=== PATIENT | female | born 1940 | race Caucasian/White ===

== ENCOUNTER 2019-12-05 21:45 | Inpatient (IN) | payer OTHER ==
[~2019-12-05] VITALS: Ht 154.9 cm; Wt 51.7 kg
[2019-12-05 20:40] VITALS: BP 172/80
[2019-12-05] MEDS ORDERED: HYDROCODONE/APAP 5-325MG TABLET PO PRN (22:00)
[2019-12-05] MEDS ORDERED: ACETAMINOPHEN 325 MG TABLET PO PRN (22:00)
[2019-12-05] MEDS ORDERED: MAGNESIUM HYDROXIDE 30 ML LIQUID UDC PO PRN (22:00)
[2019-12-05] MEDS ORDERED: ONDANSETRON 4 MG/2 ML VIAL IV PRN (22:00)
[2019-12-05] MEDS ORDERED: bp med (22:57)
[2019-12-06] VITALS: BP 120/66
[2019-12-06] MEDS: ZOLPIDEM 5 MG TABLET PO PRN ×2 (00:10→23:19)
[2019-12-06 04:10] VITALS: BP 162/56
[2019-12-06 05:58] LABS: BASOPHILS # (AUTO) 0.1 K/uL (0.0-8.0); BASOPHILS % (AUTO) 0.9 % (0.0-2.0); EOSINOPHILS # (AUTO) 0.2 K/uL (0.0-0.7); HEMATOCRIT 41.1 % (31.2-41.9); HEMOGLOBIN 14.1 g/dL (10.9-14.3); LYMPHOCYTES # (AUTO) 1.2 K/uL (20.0-40.0); LYMPHOCYTES % (AUTO) 15.9 % (20.5-51.5); MEAN CORPUSCULAR HEMOGLOBIN 31.9 uug (24.7-32.8); MEAN CORPUSCULAR HGB CONC 34 g/dL (32.3-35.6); MEAN CORPUSCULAR VOLUME 93.1 fL (75.5-95.3); MONOCYTES # (AUTO) 0.8 K/uL (2.0-10.0); MONOCYTES % (AUTO) 10.5 % (0.0-11.0); NEUTROPHILS # (AUTO) 5.4 K/uL (1.8-8.9); NEUTROPHILS % (AUTO) 70.7 % (38.5-71.5); PLATELET COUNT (AUTO) 213 K/uL (179-408); RED BLOOD CELL COUNT(AUTO) 4.41 MIL/uL (3.63-4.92); WHITE BLOOD COUNT (AUTO) 7.6 K/uL (3.8-11.8)
[2019-12-06 06:19] LABS: BILIRUBIN,TOTAL 1.4 mg/dL (0.2-1.0); CREATININE 0.8 mg/dL (0.6-1.3); MAGNESIUM 1.8 mg/dL (1.8-2.4); PHOSPHOROUS 3.8 mg/dL (2.5-4.9); POTASSIUM 3.8 mmol/L (3.5-5.1); THYROID STIMULATING HORMONE 1.017 mIU/mL (0.358-3.740); TOTAL PROTEIN, SERUM 6.1 g/dL (6.4-8.2)
[2019-12-06] MEDS: PANTOPRAZOLE SODIUM 40 MG TABLET.DR PO SCH (06:41)
--- NOTE | 2019-12-06 08:10 | NUR ---
Received patient sitting up in bed alert, awake and alert. No signs of respiratory distress noted at this time. Patient is saturating well on room air. IV intact and patent right AC 20 gauge. Safety precautions in place bed in lowest position and locked with call lights and belongings within reach. Will continue to monitor.
[2019-12-06 11:00] VITALS: BP 170/77
--- NOTE | 2019-12-06 12:45 | NUR ---
blood pressure elevated 168/70. pt. stable asymptomatic. PERSONNEL OFFICER shireen fan aware. will call previous hospital to fax home medications/ h&p, imaging, notes, consults, labs, covid results.
--- NOTE | 2019-12-06 13:22 | NUR ---
spoke to mill supervisor at [facility]. she stated she will fax h&p, labs, imaging, notes, consults provided her with our fax # and pt.'s authorization to disclose paperwork.
[2019-12-06 16:00] VITALS: BP 143/75
[2019-12-06] MEDS ORDERED: MEMA10TA PO (17:19)
[2019-12-06] MEDS ORDERED: LOPE2CAP PO (17:19)
[2019-12-06] MEDS ORDERED: HYDR25TA4 PO (17:19)
[2019-12-06] MEDS ORDERED: METO-358 PO (17:19)
[2019-12-06] MEDS ORDERED: RISP1TAB27 PO (17:19)
[2019-12-06] MEDS ORDERED: DONE5TAB34 PO (17:19)
[2019-12-06] MEDS ORDERED: TRAZ-257 PO (17:19)
[2019-12-06] MEDS ORDERED: ESCI5TAB PO (17:19)
[2019-12-06] MEDS ORDERED: IBUP-1953 PO (17:19)
[2019-12-06] MEDS ORDERED: CHOL10002 PO (17:19)
[2019-12-06] MEDS ORDERED: MAGN400O6 PO (17:19)
--- NOTE | 2019-12-06 18:50 | NUR ---
Patient resting comfortably in bed. No sign of respiratory distress noted at this time, patient saturating well on room air. Safety precautions in place bed in lowest position and locked with call light and belongings within reach. Will endorse to oncoming nurse.
[2019-12-06] MEDS: DOCUSATE SODIUM 100 MG CAPSULE PO SCH (20:36)
[2019-12-06] MEDS: TRAZODONE 100 MG TABLET PO SCH (20:36)
[2019-12-06] MEDS: IBUPROFEN 400 MG TABLET PO PRN (20:44)
[2019-12-06 20:49] VITALS: BP 171/75
[2019-12-06] MEDS ORDERED: MAGNESIUM HYDROXIDE 30 ML LIQUID UDC PO PRN (21:00)
[2019-12-06 21:30] VITALS: BP 152/69
[2019-12-07 01:30] VITALS: BP 149/83
[2019-12-07 05:14] VITALS: BP 104/59
[2019-12-07] MEDS: PANTOPRAZOLE SODIUM 40 MG TABLET.DR PO SCH (06:00)
[2019-12-07 08:06] LABS: CREATININE 0.9 mg/dL (0.6-1.3); POTASSIUM 3.6 mmol/L (3.5-5.1)
[2019-12-07 08:11] LABS: BASOPHILS # (AUTO) 0.1 K/uL (0.0-8.0); BASOPHILS % (AUTO) 0.8 % (0.0-2.0); EOSINOPHILS # (AUTO) 0.2 K/uL (0.0-0.7); EOSINOPHILS % (AUTO) 2.2 % (0.0-7.0); HEMOGLOBIN 14.6 g/dL (10.9-14.3); LYMPHOCYTES # (AUTO) 1.3 K/uL (20.0-40.0); LYMPHOCYTES % (AUTO) 18.5 % (20.5-51.5); MEAN CORPUSCULAR HEMOGLOBIN 32.4 uug (24.7-32.8); MEAN CORPUSCULAR HGB CONC 35 g/dL (32.3-35.6); MONOCYTES # (AUTO) 0.8 K/uL (2.0-10.0); MONOCYTES % (AUTO) 11.5 % (0.0-11.0); NEUTROPHILS # (AUTO) 4.5 K/uL (1.8-8.9); PLATELET COUNT (AUTO) 216 K/uL (179-408); RED BLOOD CELL COUNT(AUTO) 4.52 MIL/uL (3.63-4.92); WHITE BLOOD COUNT (AUTO) 6.8 K/uL (3.8-11.8)
[2019-12-07 08:12] LABS: BILIRUBIN,DIRECT 0.2 mg/dL (0.0-0.2); BILIRUBIN,TOTAL 1.7 mg/dL (0.2-1.0); MAGNESIUM 1.9 mg/dL (1.8-2.4); TOTAL PROTEIN, SERUM 6.3 g/dL (6.4-8.2)
--- NOTE | 2019-12-07 08:15 | NUR ---
RECEIVED PATIENT IN BED AWAKE ALERT AND ORIENTED BUT FORGETFUL DENIES PAIN OR DISCOMFORTS AT THIS TIME ON ROOM AIR WITH NO SOB CALL LIGHTS AND PERSONAL BELONGINGS ARE WITHIN EASY REACH MADE COMFORTABLE WILL CONTINUE TO OBSERVE
[2019-12-07 08:16] LABS: THYROID STIMULATING HORMONE 1.257 mIU/mL (0.358-3.740)
[2019-12-07] MEDS: MEMANTINE HCL 10 MG TABLET PO SCH ×2 (08:28→17:13)
[2019-12-07] MEDS: HYDROCHLOROTHIAZIDE 25 MG TABLET PO SCH (08:28)
[2019-12-07] MEDS: CHOLECALCIFEROL 1,000 UNIT TABLET PO SCH (08:32)
[2019-12-07] MEDS: DONEPEZIL 5 MG TABLET PO SCH (08:33)
[2019-12-07] MEDS: risperiDONE 1 MG TABLET PO SCH ×2 (08:33→17:13)
[2019-12-07] MEDS: METOPROLOL SUCCINATE XL 50 MG TAB.SR.24H PO SCH (08:34)
[2019-12-07] MEDS ORDERED: LOPERAMIDE HCL 2 MG CAPSULE PO PRN (09:00)
--- NOTE | 2019-12-07 11:26 | NUR ---
NEW ORDER NOTED TO DISCONTINUE TELEMETRY NOTED AND CARRIED OUT
[2019-12-07 11:41] VITALS: BP 100/55
[2019-12-07] MEDS: IBUPROFEN 400 MG TABLET PO PRN (14:03)
[2019-12-07 15:58] VITALS: BP 134/69
--- NOTE | 2019-12-07 18:00 | NUR ---
RESTING ASSISTED NEEDED ON ROOM AIR WITH NO SOB NOT IN DISTRESS AT THIS TIME WILL CONTINUE TO OBSERVE
[2019-12-07 20:00] VITALS: BP 163/78
--- NOTE | 2019-12-07 20:00 | NUR ---
Received patient awake. Patient shows no signs or symptoms of distress at this time. Bed set to lowest position. Call light within reach. Side rails x2 are up. Will continue to monitor patient.
[2019-12-07] MEDS: TRAZODONE 100 MG TABLET PO SCH (20:57)
[2019-12-07] MEDS: DOCUSATE SODIUM 100 MG CAPSULE PO SCH (20:57)
--- NOTE | 2019-12-07 21:04 | NUR ---
Blood pressure rechecked and is 159/94 on left arm. Rechecked on right arm and is 165/76. Pt reports feeling upset at this time. Pt does not appear to be in any distress at this time. Will recheck blood pressure in 1 hour.
[2019-12-07] MEDS: ZOLPIDEM 5 MG TABLET PO PRN (23:03)
[2019-12-08 04:00] VITALS: BP 137/63
[2019-12-08] MEDS: PANTOPRAZOLE SODIUM 40 MG TABLET.DR PO SCH (06:06)
[2019-12-08 06:29] LABS: BASOPHILS # (AUTO) 0.1 K/uL (0.0-8.0); BASOPHILS % (AUTO) 1.2 % (0.0-2.0); EOSINOPHILS # (AUTO) 0.2 K/uL (0.0-0.7); HEMATOCRIT 40.6 % (31.2-41.9); LYMPHOCYTES # (AUTO) 1.5 K/uL (20.0-40.0); LYMPHOCYTES % (AUTO) 24.7 % (20.5-51.5); MEAN CORPUSCULAR HEMOGLOBIN 32.2 uug (24.7-32.8); MEAN CORPUSCULAR HGB CONC 35 g/dL (32.3-35.6); MONOCYTES # (AUTO) 0.7 K/uL (2.0-10.0); MONOCYTES % (AUTO) 12.2 % (0.0-11.0); NEUTROPHILS # (AUTO) 3.5 K/uL (1.8-8.9); NEUTROPHILS % (AUTO) 57.9 % (38.5-71.5); PLATELET COUNT (AUTO) 204 K/uL (179-408); RED BLOOD CELL COUNT(AUTO) 4.37 MIL/uL (3.63-4.92)
[2019-12-08 06:41] LABS: CREATININE 0.8 mg/dL (0.6-1.3); MAGNESIUM 1.7 mg/dL (1.8-2.4); PHOSPHOROUS 3.9 mg/dL (2.5-4.9); POTASSIUM 3.7 mmol/L (3.5-5.1)
--- NOTE | 2019-12-08 07:30 | NUR ---
Patient shows no signs or symptoms of distress at this time. Vital signs stable. Patient endorsed to day shift nurse in stable condition.
[2019-12-08] MEDS: CHOLECALCIFEROL 1,000 UNIT TABLET PO SCH (08:26)
[2019-12-08] MEDS: MEMANTINE HCL 10 MG TABLET PO SCH ×2 (08:26→17:38)
[2019-12-08] MEDS: DONEPEZIL 5 MG TABLET PO SCH (08:27)
[2019-12-08] MEDS: risperiDONE 1 MG TABLET PO SCH ×2 (08:27→17:38)
[2019-12-08] MEDS: HYDROCHLOROTHIAZIDE 25 MG TABLET PO SCH (08:28)
[2019-12-08] MEDS: METOPROLOL SUCCINATE XL 50 MG TAB.SR.24H PO SCH (08:28)
--- NOTE | 2019-12-08 08:30 | NUR ---
PATIENT IS AWAKE ALERT VERBALLY RESPONDS BUT IS FORGETFUL DENIES PAIN OR DISCOMFORTS AT THIS TIME ON ROOM AIR WITH NO SHORTNESS OF BREATH AT THIS TIME CALL LIGHTS AND PERSONAL BELONGINGS ARE WITHIN EASY REACH MADE COMFORTABLE AND WILL CONTINUE TO OBSERVE.
--- NOTE | 2019-12-08 10:10 | NUR ---
D/C PLANNING BUT PATIENT IS COMPLAINING OF PAIN ON HER LEFT ANKLE SEEN BY JOCELYNE NAYLOR WITH ORDER FOR LEFT AND XRAY AND NOTED
[2019-12-08 11:20] VITALS: BP 117/53
[2019-12-08] MEDS: MAGNESIUM SULFATE/D5W 100 ML IV SCH ×2 (11:34→12:46)
--- NOTE | 2019-12-08 12:00 | NUR ---
XRAY OF THE LEFT FOOT DONE WITH NO FRACTURE RESULT PATIENT WILL BE DISCHARGED TO [facility] TODAY BUT PER THE NOTES OF THE PARTS PICKER ELECTRIC METER REPAIRER SHE IS STILL WAITING FOR AUTHORIZATION FROM THE PATIENTS INSURANCE PATIENT IS BEING PREPPED FOR DISCHARGE PENDING THE AUTHORIZATION OF PATIENTS INSURANCE
[2019-12-08 15:42] VITALS: BP 116/62
--- NOTE | 2019-12-08 17:59 | NUR ---
PER THE [employer]IAL [employer] PATIENTS INSURANCE DID NOT AUTHORIZE [facility] [place] WILL LET US KNOW WHICH [facility] THEY WILL AUTHORIZE
--- NOTE | 2019-12-08 19:45 | NUR ---
Received patient,alert and able to make needs known ,no s/s of distress at this time.Denies chest pain and SOB at this time, call light with in reach,bed in lowest position and locked. Bed alarm on .Will continue to monitor.
[2019-12-08 20:00] VITALS: BP 154/80
[2019-12-08] MEDS: DOCUSATE SODIUM 100 MG CAPSULE PO SCH (21:00)
[2019-12-08] MEDS: TRAZODONE 100 MG TABLET PO SCH (21:08)
[2019-12-08] MEDS: ZOLPIDEM 5 MG TABLET PO PRN (21:08)
[2019-12-09 04:00] VITALS: BP 140/76
[2019-12-09] MEDS: PANTOPRAZOLE SODIUM 40 MG TABLET.DR PO SCH (06:03)
--- NOTE | 2019-12-09 06:11 | NUR ---
Patient no s/s of distress, no c/o chest pain at this time,v/s stable.Will endorse pt to day shift nurse in stable condition.
[2019-12-09 06:18] LABS: CREATININE 0.8 mg/dL (0.6-1.3); MAGNESIUM 1.7 mg/dL (1.8-2.4)
[2019-12-09 06:30] LABS: POTASSIUM 3.6 mmol/L (3.5-5.1)
--- NOTE | 2019-12-09 07:45 | NUR ---
Received patient in bed alert and awake, and oriented times 3. No sign of respiratory distress noted at this time, patient is saturating well on room air. Patient has no IV at this time. Also no complaint of pain at this time. safety measures in place, bed in lowest position, locked with alarm activated, call light and belongings are within reach. Reinforced patient teaching on the importance of using the call light when she needs to ambulate. Will continue to observe and monitor.
[2019-12-09] MEDS: CHOLECALCIFEROL 1,000 UNIT TABLET PO SCH (08:18)
[2019-12-09] MEDS: risperiDONE 1 MG TABLET PO SCH ×2 (08:19→16:22)
[2019-12-09] MEDS: DONEPEZIL 5 MG TABLET PO SCH (08:19)
[2019-12-09] MEDS: HYDROCHLOROTHIAZIDE 25 MG TABLET PO SCH (08:20)
[2019-12-09] MEDS: MEMANTINE HCL 10 MG TABLET PO SCH ×2 (08:20→16:22)
[2019-12-09] MEDS: METOPROLOL SUCCINATE XL 50 MG TAB.SR.24H PO SCH (08:21)
[2019-12-09] MEDS ORDERED: MAGNESIUM SULFATE/D5W 100 ML IV SCH (09:30)
[2019-12-09] MEDS ORDERED: POTASSIUM CHLORIDE 20 MEQ POWDER PACKET GT ONE (10:00)
--- NOTE | 2019-12-09 10:00 | NUR ---
Order for Insertion of IV placed by MD. Patient refused she says "i don't want to be poked"
--- NOTE | 2019-12-09 10:15 | NUR ---
Clarified order with MD the administration route of the potassium is PO and not GT. Order noted.
--- NOTE | 2019-12-09 10:23 | NUR ---
Administered medication orally, patient tolerated well.
--- NOTE | 2019-12-09 10:31 | NUR ---
patient refused to insert IV on her, DIMENSION SPECIFICATION INSPECTOR Guilherme made aware, ok to change magnesium to po per DIMENSION SPECIFICATION INSPECTOR, waiting for dose instructions order
[2019-12-09] MEDS ORDERED: MAGNESIUM OXIDE 400 MG TABLET PO ONE (10:45)
[2019-12-09 12:00] VITALS: BP 118/56
--- NOTE | 2019-12-09 12:38 | NUR ---
ordered 400mg magnesium orally by DIESEL RETROFIT INSTALLER Negrette, administered as ordered.
[2019-12-09 16:00] VITALS: BP 119/49
[2019-12-09] MEDS: IBUPROFEN 400 MG TABLET PO PRN (17:57)
--- NOTE | 2019-12-09 19:14 | NUR ---
patient alert, awake, no sob, resp even nonlabored, skin warm and dry to touch, no distress noted, assisted with adls patient does not call for assistant district attorney, patient does not use her walker, bed alarm on for safety, frequently checked, no skin issues noted, kept safe, needs attended timely.
--- NOTE | 2019-12-09 19:45 | NUR ---
Received patient in bed awake ,alert and oriented x 3 no respiratory distress noted, denies pain at this time,call light within reach,bed in lowest position, locked with alarm activated.
[2019-12-09 20:00] VITALS: BP 119/59
[2019-12-09] MEDS: DOCUSATE SODIUM 100 MG CAPSULE PO SCH (21:07)
[2019-12-09] MEDS: ZOLPIDEM 5 MG TABLET PO PRN (21:08)
[2019-12-09] MEDS: TRAZODONE 100 MG TABLET PO SCH (21:10)
[2019-12-10 04:03] VITALS: BP 146/63
[2019-12-10] MEDS: IBUPROFEN 400 MG TABLET PO PRN ×3 (05:44→20:36)
[2019-12-10] MEDS: PANTOPRAZOLE SODIUM 40 MG TABLET.DR PO SCH (06:20)
--- NOTE | 2019-12-10 06:49 | NUR ---
Patient in bed,alert and able to make needs known, denies chest pain at this time, compliant with medication.Call light with in reach.Continue safety measures.
[2019-12-10] MEDS: CHOLECALCIFEROL 1,000 UNIT TABLET PO SCH (08:12)
[2019-12-10] MEDS: risperiDONE 1 MG TABLET PO SCH ×2 (08:12→16:40)
[2019-12-10] MEDS: HYDROCHLOROTHIAZIDE 25 MG TABLET PO SCH (08:12)
[2019-12-10] MEDS: DONEPEZIL 5 MG TABLET PO SCH (08:13)
[2019-12-10] MEDS: METOPROLOL SUCCINATE XL 50 MG TAB.SR.24H PO SCH (08:13)
[2019-12-10] MEDS: MEMANTINE HCL 10 MG TABLET PO SCH ×2 (08:13→16:40)
[2019-12-10] MEDS ORDERED: MAGNESIUM SULFATE/D5W 100 ML IV SCH (08:15)
[2019-12-10 08:38] VITALS: BP 174/78
[2019-12-10] MEDS ORDERED: MAGNESIUM OXIDE 400 MG TABLET PO ONE (08:45)
--- NOTE | 2019-12-10 10:23 | NUR ---
Received patient awake in bed in stable condition. Patient magnesium 1.6, replace MG 800mg PO. Patient refuse IV reinsertion. not in distress. will continue monitor
[2019-12-10 15:43] VITALS: BP 147/66
[2019-12-10 20:21] VITALS: BP 112/71
[2019-12-10] MEDS: DOCUSATE SODIUM 100 MG CAPSULE PO SCH (20:36)
[2019-12-10] MEDS: TRAZODONE 100 MG TABLET PO SCH (20:36)
[2019-12-11 04:00] VITALS: BP 120/62
[2019-12-11] MEDS: PANTOPRAZOLE SODIUM 40 MG TABLET.DR PO SCH (06:05)
[2019-12-11] MEDS: CHOLECALCIFEROL 1,000 UNIT TABLET PO SCH (08:25)
[2019-12-11] MEDS: MEMANTINE HCL 10 MG TABLET PO SCH (08:25)
[2019-12-11] MEDS: DONEPEZIL 5 MG TABLET PO SCH (08:25)
[2019-12-11] MEDS: METOPROLOL SUCCINATE XL 50 MG TAB.SR.24H PO SCH (08:25)
[2019-12-11] MEDS: risperiDONE 1 MG TABLET PO SCH (08:26)
[2019-12-11] MEDS: HYDROCHLOROTHIAZIDE 25 MG TABLET PO SCH (08:28)
[2019-12-11 11:53] VITALS: BP 121/58
--- NOTE | 2019-12-11 15:56 | NUR ---
Patient is awake, alert and verbally responsive. No Sign of distress noted. No SOB. No complain of pain or discomfort. patient with order to discharge to [facility] today. Called [facility] and endorsed to [facility], Discharged Instructions given to patient and verbalized Understanding. All belongings signed and sent with patient, removed Wrist band. patient was picked up by 2 EMT in stable condition.
== END 2019-12-11 16:00 | DRG 293 ==
LOC: MEDSURG3 21:45 → TELE3 22:30 → MEDSURG3 12-07 10:25
PROVIDERS: ADMIT Registered Nurse; ATTEND Nurse Practitioner Acute Care
DX: I11.0 Hypertensive heart disease with heart failure (principal); E83.42 Hypomagnesemia; F03.90 Unspecified dementia, unspecified severity, without behavioral disturbance, psychotic disturbance, mood disturbance, and anxiety; F20.9 Schizophrenia, unspecified; F41.9 Anxiety disorder, unspecified; M19.90 Unspecified osteoarthritis, unspecified site; E80.6 Other disorders of bilirubin metabolism; R07.89 Other chest pain; I50.33 Acute on chronic diastolic (congestive) heart failure
CPT/HCPCS: 36415; 70030-TC; 71045; 73610; 83735; 84100; 84443; 85025; 87400; 93005; 93307; G0378; J3475; J7050